=== PATIENT | male | born 1980 | race African-American/Black ===

== ENCOUNTER 2016-12-17 09:18 | Emergency (ER) | payer OTHER ==
[~2016-12-17] VITALS: Ht 185.4 cm; Wt 79.4 kg
[~2016-12-17 09:18] MED LIST: AMOXICILLIN 50500 M1 PO; IBUPROFEN 600600 M1 PO
[2016-12-17] MEDS ORDERED: IBUPROFEN 600600 M1 PO (10:29)
[2016-12-17] MEDS ORDERED: NORCO 5-325 TA1 EACH PO (10:35)
[2016-12-17 11:14] VITALS: BP 130/94
== END 2016-12-17 11:22 | disposition home or self-care (01) ==
LOC: ER 09:18
DX: S62.346A Nondisplaced fracture of base of fifth metacarpal bone, right hand, initial encounter for closed fracture (principal); F17.210 Nicotine dependence, cigarettes, uncomplicated; F12.10 Cannabis abuse, uncomplicated; W23.0XXA Caught, crushed, jammed, or pinched between moving objects, initial encounter; Y93.89 Activity, other specified; Y92.89 Other specified places as the place of occurrence of the external cause; Y99.8 Other external cause status

== ENCOUNTER 2018-06-15 18:29 | Emergency (ER) | payer OTHER ==
[~2018-06-15] VITALS: Ht 185.4 cm; Wt 84.4 kg
[~2018-06-15 18:29] MED LIST changes: +FLEXERIL PO; +NAPROSYN500 MG PO; +NORCO 5-325 TA1 EACH PO; +NORFLEX100 MG PO
[2018-06-15 20:24] VITALS: BP 115/66
== END 2018-06-15 20:30 | disposition home or self-care (01) ==
LOC: ER 18:29
DX: S81.812A Laceration without foreign body, left lower leg, initial encounter (principal); Z23 Encounter for immunization; W26.8XXA Contact with other sharp object(s), not elsewhere classified, initial encounter; Y93.89 Activity, other specified; Y92.89 Other specified places as the place of occurrence of the external cause; Y99.8 Other external cause status; F17.210 Nicotine dependence, cigarettes, uncomplicated

== ENCOUNTER 2018-07-10 08:10 | Emergency (ER) | payer OTHER ==
[~2018-07-10] VITALS: Ht 185.4 cm; Wt 83.9 kg
[2018-07-10 08:11] VITALS: BP 122/73
== END 2018-07-10 09:10 | disposition home or self-care (01) ==
LOC: ER 08:10
DX: S81.812D Laceration without foreign body, left lower leg, subsequent encounter (principal); F17.210 Nicotine dependence, cigarettes, uncomplicated; W26.8XXD Contact with other sharp object(s), not elsewhere classified, subsequent encounter

== ENCOUNTER 2019-12-19 20:54 | Inpatient (IN) | payer OTHER ==
[~2019-12-19] VITALS: Ht 185.4 cm; Wt 74.8 kg
[2019-12-19 20:55] VITALS: BP 157/95
[2019-12-19 22:02] LABS: ABSOLUTE NEUTROPHILS 5.7 thou/uL (1.4-8.2); BASOPHILS 0.9 % (0.0-2.0); EOSINOPHILS 0.1 % (0.0-3.0); HEMATOCRIT 40.4 % (42.0-52.0); LYMPHOCYTES 26.8 % (24.0-44.0); MCH 30.6 pg (26.0-34.0); MCHC 34.6 g/dL (28.0-37.0); MCV 88.5 fL (80.0-100.0); PLATELET COUNT 262 thou/uL (150-400); POLYS 66.2 % (36.0-66.0); RBC 4.57 mil/uL (4.50-6.00); RDW 11.9 % (10.5-14.5); WBC 8.6 thou/uL (4.0-11.0)
[2019-12-19 22:09] LABS: CALCIUM 9.8 mg/dL (8.5-10.1); CREATININE 1.1 mg/dL (0.7-1.3); POTASSIUM 3.7 mmol/L (3.5-5.1)
[2019-12-19 22:18] LABS: TROPONIN-I 0.06 ng/mL (<0.06)
[2019-12-20] VITALS (7 sets, daily range): BP systolic 134–156; BP diastolic 75–96
--- NOTE | 2019-12-20 08:20 | NUR ---
ASSUME CARE 0300 FROM ED STAFF. PT/VITALS STABLE. INTERMITTENT CHEST PAIN THAT RADIATES TO THE BACK INDICATED. PT STATES IT HURTS WHEN HE MOVES RIGHT ARM BUT WHEN HE IS AT REST PAIN IS A 0. ASSESSMENT CHARTED. PROGRSSING WELL WITH POC. PLAN IS POSSIBLE DISCHARGE TODAY. WILL CONITUE TO FOLLOW WITH POC
--- NOTE | 2019-12-20 12:13 | EKG ---
[facility] [place] [address] ELECTROCARDIOGRAM REPORT Name: LEX ONEILL Room #: 214-P ADM IN M.R.#: [id number] Admission: 12/20/19 Attend Phys: Taz Fraser Discharge: Date of : 82 Report #: [id number] THIS REPORT FOR: cc: ASIF - No family physician/PCP FAM - No family physician/PCP Reji Larson MD ~ THIS REPORT FOR: //name// [facility] ED Test Date: 2019-12-19 Test Time: 21:32:21 Pat Name: LEX ONEILL Department: Room: 214 Gender: M Survey Director: LEW : 1980 Requested By: Cornelio Alejandro Order Number: [id number] MD: Reji Larson Measurements Intervals [place] Rate: 80 P: 44 [place]: 156 QRS: 52 QRSD: 87 T: 63 QT: 367 QTc: 424 Interpretive Statements Sinus rhythm ST elev, probable normal early repol pattern No previous ECG available for comparison Electronically Signed On 12-20-2019 12:12:25 CDT by Reji Larson [email or web address] <ELECTRONICALLY SIGNED> By: Reji Larson MD 12/20/191211 31 31 Reji Larson MD /EPI
--- NOTE | 2019-12-20 13:45 | NUR ---
RECEIVED PT'S CARE AROUND 0720; PT. ON BED; RESTING WITH EYES CLOSED; EQUAL CHEST RISING NOTICED; DURING AM ASSESSMENT PT. AOX4; NO C/O PAIN; MEDICATION GIVEN; EDUCATED ABOUT GOALS THROUGH THE DAY; POC; SR ON THE MONITOR; AROUND 1345 D/C ORDERS ON PLACE; PT. NOTIFIED; ST. UNDERSTANDING; ASSESSMENT CHARGED; FOLLOWED POC; WORKING ON D/C ORDERS;
== END 2019-12-20 14:27 | disposition home or self-care (01) | DRG 313 ==
LOC: ER 20:54 → EROBS 12-20 01:57 → 2N 12-20 02:18
PROVIDERS: Emergency Medicine; ADMIT Hospitalist
DX: R07.89 Other chest pain (principal); F12.90 Cannabis use, unspecified, uncomplicated; F17.210 Nicotine dependence, cigarettes, uncomplicated; Z79.899 Other long term (current) drug therapy
CPT/HCPCS: 10081

== ENCOUNTER 2019-12-22 11:06 | Emergency (ER) | payer OTHER ==
[~2019-12-22] VITALS: Ht 185.4 cm; Wt 83.9 kg
--- NOTE | 2019-12-22 13:12 | EXE ---
[facility] [place] [address] STRESS ECHOCARDIOGRAM Name: NINOJHOANDALICatarino Luciana Room #: REG FaisalSamanthaTyrellSamantha#: [id number] Admission: 12/22/19 Attend Phys: Discharge: Date of : 82 Report #: [id number] THIS REPORT FOR: cc: ASIF - No family physician/PCP FAM - No family physician/PCP Edmar Falcon MD ~ THIS REPORT FOR: //name// APPROVED REPORT Study performed: 12/22/2019 12:07:16 Exam: Stress Echocardiogram Indication: Chest pain Patient Location: ER Stress Nurse: Tabatha Nettles RN Room #: 8 Status: routine Ht: 6 ft 1 in Rhythm: NSR Medical History Medical History: No history of CAD Medications: No cardiac medications Allergies: No known drug allergies Procedure The patient underwent an Exercise Stress Test using the Giacomo Protocol. Blood pressure, heart rate, and EKG were monitored. An Echocardiogram was performed by biological science technician in four stages in quad fashion. At peak stress, four selected images were obtained and placed side by side with resting images for comparison. Stress Test Details Stress Test: Exercise stress testing was performed using a Giacomo protocol. HR Resting HR: 59 bpm Max Heart Rate (APMHR): 182 bpm Max HR Achieved: 176 bpm Target HR (85% APMHR): 154 bpm % of APMHR: 96 Recovery HR: 130 bpm HR response to stress: Normal HR response to stress [address] [address] STRESS ECHOCARDIOGRAM Name: NINOJHOANDALICatarino Luciana Room #: [facility]#: [id number] Admission: 12/22/19 Attend Phys: Discharge: Date of : 82 Report #: [id number] Resting BP: 132/82 mmHg Max BP: 145/85 mmHg BP response to stress: Normal blood pressure response to stress. ECG Resting ECG: Sinus Rhythm Stress ECG: Sinus Tachycardia Recovery ECG: Sinus Rhythm Clinical Reason for Termination: Maximal effort Stress Symptoms: Fatigue Exercise duration: 13 min 36 sec Highest Stage Achieved: Stage 5: 5.0 mph at 18% grade. Exercise capacity: 17.50 METs Stress ECG Conclusion 1. Subjectively negative for ischemia 2. Echocardiographic negative for ischemia 3. No inducible arrhythmias 4. Satisfactory functional capacity Pre-Stress Echo The resting Echocardiogram showed normal left ventricular contractility with an estimated Ejection Fraction of about 55%. The resting echocardiogram demonstrated normal wall motion in all wall segments. Post-Stress Echo The stress Echocardiogram showed normal left ventricular contractility with an estimated Ejection Fraction of about 70%. Compared to rest, there were no stress-induced wall motion abnormalities. Conclusion Clinical Response: Non-ischemic Exercise Capacity: satisfactory Stress ECG Response: Non-ischemic Stress Echo Images: Non-ischemic 1. Low risk study No prior study available for comparison. Other Information Study Quality: Adequate [address] [place] [address] STRESS ECHOCARDIOGRAM Name: LEX ONEILL Room #: REG HESHAM Edmondson#: [id number] Admission: 12/22/19 Attend Phys: Discharge: Date of : 82 Report #: [id number] <Conclusion> 1. Low risk study <ELECTRONICALLY SIGNED> By: Edmar Falcon MD 12/22/191310 10 10 Edmar Falcon MD /INF
[2019-12-22 13:27] VITALS: BP 121/69
--- NOTE | 2019-12-23 08:54 | EKG ---
[facility] [place] [address] ELECTROCARDIOGRAM REPORT Name: LEX ONEILL Room #: DEP [facility]#: [id number] Admission: 12/22/19 Attend Phys: Discharge: 12/22/19 Date of : 82 Report #: [id number] THIS REPORT FOR: cc: ASIF - Elizabeth family physician/PCP ASIF - Elizabeth family physician/PCP Tito Dawson MD [facility] THIS REPORT FOR: //name// [facility] ED Test Date: 2019-12-22 Test Time: 11:07:21 Pat Name: LEX ONEILL Department: Room: Gender: Proposal Rep: [facility] SERVICES[facility] : 1980 Requested By: Carlie Miller Order Number: [id number] MD: Tito Dawson Measurements Intervals [place] Rate: 57 P: 47 MA: 157 QRS: 54 QRSD: 95 T: 42 QT: 424 QTc: 413 Interpretive Statements Sinus rhythm ST elev, probable normal early repol pattern Compared to ECG 12/19/2019 21:32:21 No significant changes Electronically Signed On 12-23-2019 8:52:48 CDT by Tito Dawson [email or web address] <ELECTRONICALLY SIGNED> By: Tito Dawson MD, [facility] 12/23/19 [id number] Tito Dawson MD, [facility] /EPI
== END 2019-12-22 13:37 | disposition home or self-care (01) ==
LOC: ER 11:06
DX: R07.89 Other chest pain (principal); F17.210 Nicotine dependence, cigarettes, uncomplicated; X50.0XXA Overexertion from strenuous movement or load, initial encounter; Y93.89 Activity, other specified; Y92.89 Other specified places as the place of occurrence of the external cause; Y99.8 Other external cause status

== ENCOUNTER 2021-08-30 09:17 | Emergency (ER) | payer OTHER ==
[~2021-08-30] VITALS: Ht 185.4 cm; Wt 87.5 kg
[2021-08-30 09:21] VITALS: BP 125/75
== END 2021-08-30 10:33 | disposition home or self-care (01) ==
LOC: ER 09:17
DX: R22.31 Localized swelling, mass and lump, right upper limb (principal); M79.644 Pain in right finger(s); F12.90 Cannabis use, unspecified, uncomplicated; F17.210 Nicotine dependence, cigarettes, uncomplicated; Z98.890 Other specified postprocedural states; W23.0XXA Caught, crushed, jammed, or pinched between moving objects, initial encounter; Y93.89 Activity, other specified; Y92.89 Other specified places as the place of occurrence of the external cause; Y99.9 Unspecified external cause status